=== PATIENT | male | born 1950 | race African-American/Black ===

== ENCOUNTER 2020-07-07 10:01 | Inpatient (IN) ==
[2020-07-07] MEDS ORDERED: NOREPINEPHRINE 4 MG/4 ML VIAL IV ONE (10:09)
[2020-07-07] MEDS ORDERED: SODIUM CHLORIDE 0.9% 1,000 ML IV SCH (10:30)
[2020-07-07 10:47] LABS: Basophils % 0.1 % (0.0-0.8); Hematocrit 26.1 VOL% (42.0-52.0); Hemoglobin 8.4 GM/DL (14.0-18.0); Immature Granulocytes Absolute 0.27 #; Lymphocytes # 0.3 10*3/uL (1.4-4.0); Lymphocytes % 1.1 % (21.2-54.2); Mean Corpuscular HGB Conc 32.2 GM/DL (32-36); Mean Corpuscular Volume 82.1 FL (87-102); Mean Platelet Volume 9.8 FL (9.6-12.0); Monocytes % 1.5 % (1.7-12.7); Neutrophils % 96.3 % (38.7-73.9); Platelet Count 314 T/CUMM (130-400); Red Blood Count 3.18 MC/CUMM (3.8-5.5); White Blood Count 26.6 T/CUMM (4-12)
[2020-07-07 11:06] LABS: Albumin 2.5 G/DL (3.4-5.0); Bilirubin,Total 0.8 MG/DL (0.2-1.0); Calcium 6.7 MG/DL (8.5-10.1); Osmolality,Calculated 288.2 MOS/KG (273-304); Potassium 3.4 MMOL/L (3.5-5.1)
[2020-07-07] MEDS ORDERED: SODIUM CHLORIDE 0.9% 1,000 ML IV ONE (11:44)
[2020-07-07] MEDS ORDERED: POTASSIUM CHLORIDE 20 MEQ TABLET PO ONE (11:47)
[2020-07-07] MEDS ORDERED: ONDANSETRON 4 MG/2 ML VIAL IV PRN (11:48)
[2020-07-07] MEDS ORDERED: GLUCAGON 1 MG VIAL IM PRN (11:48)
[2020-07-07] MEDS ORDERED: DEXTROSE 50% 25 GM/50 ML VIAL IV PRN (11:48)
[2020-07-07 11:51] LABS: Band Neutrophils 1 % (0-10); Hypochromasia 1+; Lymphocytes 2 % (20-55); Microcytosis 1+; Segmented Neutrophils 96 % (50-85); Target Cells Slight; Total Cells Counted 100
[2020-07-07 11:52] LABS: Anisocytosis 1+; Ovalocytes Slight; Platelet Estimate Normal
[2020-07-07] MEDS ORDERED: VANCOMYCIN INJ 1,000 MG in SODIUM CHLORIDE 0.9% 250 ML IV SCH (12:00)
[2020-07-07 12:17] LABS: Risk Ratio 7.18; Thyroid Stimulating Hormone 0.41 uIU/ml (0.358-3.74); VLDL CHOLESTEROL 28.8 MG/DL
[2020-07-07] MEDS: PIPERACILLIN/TAZOBACTAM 3,375 MG in SODIUM CHLORIDE 0.9% 100 ML IV SCH ×2 (13:32→20:41)
[2020-07-07] MEDS: SODIUM CHLOR 0.9% KCL 40 MEQ 40 MEQ/1,000 ML BAG IV SCH (13:32)
[2020-07-07] MEDS ORDERED: CALCIUM GLUCONATE 2,000 MG in SODIUM CHLORIDE 0.9% 100 ML IV ONE (15:00)
[2020-07-07] MEDS: IRON (CARBONYL) 45 MG TABLET PO SCH ×2 (17:24→20:44)
[2020-07-07 18:09] LABS: Bilirubin,Urine Negative (Negative); Blood, Urine Moderate mg/dL (Negative); Glucose,Urine (UA) Negative (Negative); Ketones,Urine Negative (Negative); Nitrite,Urine Negative (Negative); Protein,Urine 100 MG/DL; RBC,Urine 21 /HPF (0-4); Squamous Epithelial Cell,Urine Occasional /HPF (0-10); Urine Appearance CLOUDY (Clear); Urine Color Yellow (Yellow); Urine Specific Gravity 1.014 (1.001-1.035); Urine Urobilinogen < 2.0 EU/DL (0.2-1.0); WBC,Urine 1839 /HPF (0-6)
[2020-07-07] MEDS: ENOXAPARIN 30 MG/0.3 ML SYRINGE SUBCUT SCH (20:44)
[2020-07-08] MEDS: SODIUM CHLOR 0.9% KCL 40 MEQ 40 MEQ/1,000 ML BAG IV SCH ×4 (00:30→23:56)
[2020-07-08] MEDS: oxyCODONE IR 5 MG TABLET PO PRN (02:15)
[2020-07-08] MEDS: PIPERACILLIN/TAZOBACTAM 3,375 MG in SODIUM CHLORIDE 0.9% 100 ML IV SCH ×3 (04:53→20:33)
[2020-07-08 05:56] LABS: Basophils % 0.2 % (0.0-0.8); Eosinophils % 0.1 % (0.00-10.9); Hematocrit 24.4 VOL% (42.0-52.0); Hemoglobin 7.8 GM/DL (14.0-18.0); Immature Granulocytes % 1.4 %; Immature Granulocytes Absolute 0.32 #; Lymphocytes # 0.4 10*3/uL (1.4-4.0); Lymphocytes % 1.8 % (21.2-54.2); Mean Corpuscular Volume 84.4 FL (87-102); Mean Platelet Volume 10.1 FL (9.6-12.0); Monocytes % 2.8 % (1.7-12.7); Neutrophils % 93.7 % (38.7-73.9); Platelet Count 313 T/CUMM (130-400); Red Blood Count 2.89 MC/CUMM (3.8-5.5); Red Cell Distribution Width 17.1 % (9.3-17.3); White Blood Count 22.7 T/CUMM (4-12)
[2020-07-08 06:08] LABS: Albumin 2.2 G/DL (3.4-5.0); Bilirubin,Total 0.5 MG/DL (0.2-1.0); Calcium 7.6 MG/DL (8.5-10.1); Osmolality,Calculated 298.3 MOS/KG (273-304); Potassium 4.4 MMOL/L (3.5-5.1); Total Protein 6.4 G/DL (6.4-8.3)
[2020-07-08 06:19] LABS: Band Neutrophils 3 % (0-10); Hypochromasia 1+; Lymphocytes 1 % (20-55); Microcytosis Slight; Platelet Estimate Normal; Segmented Neutrophils 92 % (50-85); Total Cells Counted 100
[2020-07-08] MEDS: ATORVASTATIN 20 MG TABLET PO SCH (09:08)
[2020-07-08] MEDS: IRON (CARBONYL) 45 MG TABLET PO SCH ×2 (09:08→20:32)
[2020-07-08] MEDS: MULTIVITAMIN (CENTRUM) TABLET PO SCH (09:08)
[2020-07-08] MEDS: PANTOPRAZOLE 40 MG TABLET PO SCH (09:08)
[2020-07-08] MEDS: SODIUM CHLORIDE 0.9% 1,000 ML IV SCH (19:33)
[2020-07-08] MEDS: ENOXAPARIN 30 MG/0.3 ML SYRINGE SUBCUT SCH (20:32)
[2020-07-09] MEDS: PIPERACILLIN/TAZOBACTAM 3,375 MG in SODIUM CHLORIDE 0.9% 100 ML IV SCH ×3 (04:15→21:02)
[2020-07-09 05:46] LABS: Basophils % 0.1 % (0.0-0.8); Hematocrit 25.3 VOL% (42.0-52.0); Hemoglobin 7.8 GM/DL (14.0-18.0); Immature Granulocytes % 1.2 %; Immature Granulocytes Absolute 0.28 #; Lymphocytes # 1.3 10*3/uL (1.4-4.0); Lymphocytes % 5.3 % (21.2-54.2); Mean Corpuscular HGB Conc 30.8 GM/DL (32-36); Mean Corpuscular Volume 86.3 FL (87-102); Mean Platelet Volume 10.4 FL (9.6-12.0); Monocytes % 6.4 % (1.7-12.7); Platelet Count 390 T/CUMM (130-400); Red Blood Count 2.93 MC/CUMM (3.8-5.5); Red Cell Distribution Width 17.4 % (9.3-17.3); White Blood Count 23.8 T/CUMM (4-12)
[2020-07-09 06:04] LABS: Albumin 2.4 G/DL (3.4-5.0); Bilirubin,Total 0.5 MG/DL (0.2-1.0); Potassium 3.9 MMOL/L (3.5-5.1); Total Protein 6.2 G/DL (6.4-8.3)
[2020-07-09 06:18] LABS: Burr Cells Slight; Microcytosis Slight; Ovalocytes Slight; Platelet Estimate Adequate
[2020-07-09 06:19] LABS: Hypochromasia Slight
[2020-07-09] MEDS: SODIUM CHLORIDE 0.9% 1,000 ML IV SCH ×2 (06:33→21:01)
[2020-07-09] MEDS: oxyCODONE IR 5 MG TABLET PO PRN (08:11)
[2020-07-09] MEDS: ATORVASTATIN 20 MG TABLET PO SCH (08:12)
[2020-07-09] MEDS: MULTIVITAMIN (CENTRUM) TABLET PO SCH (08:12)
[2020-07-09] MEDS: IRON (CARBONYL) 45 MG TABLET PO SCH ×2 (08:12→21:02)
[2020-07-09] MEDS: PANTOPRAZOLE 40 MG TABLET PO SCH (08:12)
[2020-07-09] MEDS: ENOXAPARIN 30 MG/0.3 ML SYRINGE SUBCUT SCH (21:03)
[2020-07-10] MEDS: PIPERACILLIN/TAZOBACTAM 3,375 MG in SODIUM CHLORIDE 0.9% 100 ML IV SCH (04:05)
[2020-07-10] MEDS: oxyCODONE IR 5 MG TABLET PO PRN (04:40)
[2020-07-10 05:39] LABS: Basophils % 0.1 % (0.0-0.8); Hematocrit 26.6 VOL% (42.0-52.0); Hemoglobin 8.2 GM/DL (14.0-18.0); Immature Granulocytes % 0.7 %; Lymphocytes # 1.5 10*3/uL (1.4-4.0); Mean Corpuscular HGB Conc 30.8 GM/DL (32-36); Mean Corpuscular Volume 86.6 FL (87-102); Mean Platelet Volume 10.4 FL (9.6-12.0); Monocytes % 9.7 % (1.7-12.7); Neutrophils % 79.5 % (38.7-73.9); Platelet Count 403 T/CUMM (130-400); Red Blood Count 3.07 MC/CUMM (3.8-5.5); Red Cell Distribution Width 17.5 % (9.3-17.3); White Blood Count 15.1 T/CUMM (4-12)
[2020-07-10 05:58] LABS: Albumin 2.4 G/DL (3.4-5.0); Bilirubin,Total 1.3 MG/DL (0.2-1.0); Calcium 8.2 MG/DL (8.5-10.1); Osmolality,Calculated 292.8 MOS/KG (273-304); Potassium 3.7 MMOL/L (3.5-5.1); Total Protein 6.4 G/DL (6.4-8.3)
[2020-07-10 08:16] VITALS: BP 149/53
[2020-07-10] MEDS: MULTIVITAMIN (CENTRUM) TABLET PO SCH (08:50)
[2020-07-10] MEDS: ATORVASTATIN 20 MG TABLET PO SCH (08:50)
[2020-07-10] MEDS: IRON (CARBONYL) 45 MG TABLET PO SCH (08:50)
[2020-07-10] MEDS: PANTOPRAZOLE 40 MG TABLET PO SCH (08:50)
[2020-07-10] MEDS: SODIUM CHLORIDE 0.9% 1,000 ML IV SCH (08:51)
== END 2020-07-10 12:46 | disposition home or self-care (01) | DRG 699 ==
LOC: N.ED 10:01 → SUATTDRO 11:09 → N.EDINP 11:09 → N.5E 12:08
PROVIDERS: ADMIT Internal Medicine; ATTEND Family Medicine